=== PATIENT | female | born 1985 | race Caucasian/White ===

== ENCOUNTER 2019-02-02 23:48 | Emergency (ER) | payer SELFPAY ==
[~2019-02-02] VITALS: Ht 162.6 cm; Wt 66.0 kg
[2019-02-02 23:57] VITALS: BP 147/91; PULSE 76; RESP 18; Ht 162.6 cm; Wt 66.0 kg
== END 2019-02-03 00:15 | disposition left against medical advice (07) ==
LOC: FTE 23:48
DX: Z53.21 Procedure and treatment not carried out due to patient leaving prior to being seen by health care provider (principal)